=== PATIENT | male | born 1995 | race Two or more races ===

== ENCOUNTER 2016-04-18 13:38 | Emergency (ER) | payer MEDICAID ==
[2016-04-18] MEDS ORDERED: LOPERAMIDE HCL 2 MG CAPSULE ONE (15:19)
[2016-04-18] MEDS ORDERED: ONDANSETRON 4 MG ODT TAB ONE (15:19)
== END 2016-04-18 15:34 | disposition home or self-care (01) ==
LOC: ED 13:38
DX: R19.7 Diarrhea, unspecified (principal)
CPT/HCPCS: 99283 ×2; A9270 ×2